=== PATIENT | female | born 2005 | race Caucasian/White ===

== ENCOUNTER 2023-06-02 04:15 | Emergency (ER) | payer BC, SELFPAY ==
[2023-06-02 04:17] VITALS: BP 143/91; PULSE 95; RESP 15; TEMP 36.8; O2SAT 99; BMI 19.7
--- NOTE | 2023-06-02 04:31 | ECG_ITS ---
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 Measurements Intervals [place] Rate: 76 P: 76 ID: 130 QRS: 62 QRSD: 85 T: 24 QT: 368 QTc: 415 Interpretive Statements SINUS RHYTHM WITH SINUS ARRHYTHMIA NONSPECIFIC T-WAVE ABNORMALITY No previous ECG available for comparison Electronically Signed On 06-02-2023 23:54:27 CDT by Mo Dean M.D. [id number]
--- NOTE | 2023-06-02 04:31 | XRR_ITS ---
PROCEDURE INFORMATION: Exam: XR Chest Exam date and time: 06/02/2023 4:35 AM Age: 17 years old Clinical indication: Chest pressure; Patient HX: C/O chest pain with nausea; Additional info: Cp TECHNIQUE: Imaging protocol: Radiologic exam of the chest. Views: 1 view. COMPARISON: No relevant prior studies available. FINDINGS: Lungs: Unremarkable. No consolidation. Pleural spaces: Unremarkable. No pleural effusion. No pneumothorax. Heart/Mediastinum: Unremarkable. No cardiomegaly. Bones/joints: Unremarkable. XR/XR chest 1V portable [id number] IMPRESSION: No acute findings.
[2023-06-02 04:32] VITALS: BP 125/85; PULSE 86; RESP 17; O2SAT 99
[2023-06-02 04:39] LABS: Basophils % 0.3 %; Eosinophils # 0.1 10^3/uL (0.0-0.8); Eosinophils % 1.2 %; Hematocrit 42.9 % (36-47); Lymphocytes % 41.9 %; Mean Corpuscular HGB Conc 34.7 g/dL (30-55); Mean Corpuscular Hemoglobin 30.4 pg (27-33); Mean Corpuscular Volume 87.6 fl (85-98); Mean Platelet Volume 11.5 fL (7.4-10.4); Monocytes # 0.5 10^3/uL (0.2-0.9); Monocytes % 7.3 %; Neutrophils # 3.57 10^3/uL (1.8-8.0); Neutrophils % 49.2 %; Nucleated Red Blood Cells % 0 %; Platelet Count 226 10^3/cmm (157-399); Red Cell Distribution Width 12.1 % (12.1-15.1); White Blood Count 7.26 10^3/uL (4.5-13.0)
[2023-06-02 04:54] LABS: HCG, Serum Qual Negative (Negative)
[2023-06-02 04:55] LABS: D Dimer <= 0.27 ug/mLFEU (0-0.59)
[2023-06-02 04:58] LABS: Troponin(5th) Baseline < 6 ng/L (0-10)
--- NOTE | 2023-06-02 04:59 | ED_ITS ---
HPI - Chest Pain 2 General: Chief Complaint: Chest Pain Stated Complaint: sudden dizziness, sharp pain in chest nausous Time Seen by Provider: 06/02/23 04:23 History of Present Illness: Healthy 17-year-old female. She presents with sudden onset of chest discomfort, sharp in nature, worse with deep breathing. She became nauseated and dizzy with the pain. It is since improved to some degree and now just feels heavy . No significant shortness of breath currently. She denies recent cough or fever. She denies leg swelling or pain. She has been in [place], and on a long car trip back to [facility]. Associated symptoms: Reports dyspnea, nausea and palpitations; Deny abdominal pain, fever(s) or vomiting Review of Systems 2 Const: Denies: fever(s) or chills ENMT: Denies: throat pain Card: Reports: chest pain and palpitations Resp: Reports: dyspnea; Denies: productive cough or non-productive cough GI: Reports: nausea; Denies: abdominal pain or vomiting Skin/Breast: Denies: rash Physical Exam 2 Const: COMMON NORMALS: no acute distress GENERAL APPEARANCE: cooperative; not ill appearing and not frail appearing HENMT: COMMON NORMALS: normocephalic, atraumatic and Normal external nose present HEAD & SCALP: normocephalic and atraumatic FACE & SINUS: normal facial exam and face symmetric NOSE: Normal external nose present Eye: COMMON NORMALS: Equal, round and reactive pupils present and EOMs intact bilaterally PUPIL: Yes Equal, round and reactive pupils present Neck/C-Spine: GENERAL: Yes trachea midline Chest: CHEST: Yes Symmetrical chest wall rise Resp: COMMON NORMALS: normal respiratory effort, No retractions, No use of accessory muscles and clear to auscultation bilaterally AUSCULTATION: clear to auscultation bilaterally Cardio: COMMON NORMALS: regular rate and regular rhythm RATE: regular rate RHYTHM: regular rhythm GI: COMMON NORMALS: Normal to inspection, nondistended, normoactive bowel sounds present Extremity: COMMON NORMALS: no pedal edema Neuro: ROSALIA COMA SCALE: document GCS findings Rosalia coma scale eye opening: Spontaneous [place] coma scale verbal response: Orientated Rosalia coma scale motor response: Obey commands Rosalia coma scale total score: 15 S ENSORY EXAM: Yes extremities (intact) Psych: COMMON NORMALS: speech normal SPEECH: Yes normal speech Skin: COMMON NORMALS: no rashes or lesions noted GENERAL SKIN EXAM: no rashes or lesions noted Course 2 Vital Signs: Vital signs: Vital Signs Temperature 98.3 F 06/02/23 04:17 Pulse Rate 77 06/02/23 06:19 Respiratory Rate 14 06/02/23 06:19 Blood Pressure 133/87 06/02/23 06:19 Pulse Oximetry 98 06/02/23 06:19 Oxygen Delivery Me thod Room Air 06/02/23 04:17 MDM - Chest Pain Medical Decision Making 17-year-old female with resolving chest discomfort. Chest x-ray is negative. Vital signs are stable. She is afebrile. Hemoglobin is 15. White blood cell count is 7.3. Troponin is nondetectable. D-dimer is nondetectable. Lipase is normal. She is not . Awaiting CMP. She will be allowed discharge Lab Data 06/02/23 04:29 06/02/23 04:29 Radiology Impressions Chest X-Ray 06/02/23 04:31 IMPRESSION: No acute findings. Laboratory Results WBC 7.26 10^3/uL (4.5-13.0) 06/02/23 04:29 RBC 4.90 10^6/uL (3.85-5.65) 06/02/23 04:29 Hgb 14.90 g/dL (12.4-14.8) H 06/02/23 04:29 Hct 42.9 % (36-47) 06/02/23 04:29 MCV 87.6 fl (85-98) 06/02/23 04:29 MCH 30.4 pg (27-33) 06/02/23 04:29 MCHC 34.7 g/dL (30-55) 06/02/23 04:29 RDW 12.1 % (12.1-15.1) 06/02/23 04:29 Plt Count 226 10^3/cmm (157-399) 06/02/23 04:29 MPV 11.5 fL (7.4-10.4) H 06/02/23 04:29 Neut % (Auto) 49.2 % 06/02/23 04:29 Lymph % (Auto) 41.9 % 06/02/23 04:29 Antelope % (Auto) 7.3 % 06/02/23 04:29 Eos % (Auto) 1.2 % 06/02/23 04:29 Baso % (Auto) 0.3 % 06/02/23 04:29 Neut # (Auto) 3.57 10^3/uL (1.8-8.0) 06/02/23 04:29 Lymph # (Auto) 3.0 10^3/uL (1.5-6.5) 06/02/23 04:29 Antelope # (Auto) 0.5 10^3/uL (0.2-0.9) 06/02/23 04:29 Eos # (Auto) 0.1 10^3/uL (0.0-0.8) 06/02/23 04:29 Baso # (Auto) 0.0 10^3/uL (0.0-0.1) 06/02/23 04: Nucleated RBC % (auto) 0 % 06/02/23 04: Nucleated RBCs # 0.0 /100WBC 06/02/23 04:29 D-Dimer <= 0.27 ug/mLFEU (0-0.59) 06/02/23 04:29 Sodium 137 mmol/L (136-145) 06/02/23 04:29 Potassium 4.0 mmol/L (3.5-5.1) 06/02/23 04:29 Chloride 104 mmol/L (98-107) 06/02/23 04:29 Carbon Dioxide 20 mmol/L (22-29) L 06/02/23 04:29 Anion Gap 17.0 (5-19) 06/02/23 04:29 BUN 6 mg/dL (6-20) 06/02/23 04:29 Creatinine 0.7 mg/dL (0.5-0.9) 06/02/23 04:29 GFR Calculation 107.8 mL/min (90-130) 06/02/23 04:29 Glucose 99 mg/dL (65-115) 06/02/23 04:29 Calculated Osmolality 282 mOsm/kg (285-295) L 06/02/23 04:29 Calcium 9.2 mg/dL (8.5-10.5) 06/02/23 04:29 Total Bilirubin 0.5 mg/dL (0.15-1.2) 03/24/24 04:29 AST 12 U/L (0-32) 06/02/23 04:29 ALT 10 U/L (0-33) 06/02/23 04:29 Alkaline Phosphatase 81 U/L (35-105) 06/02/23 04:29 Troponin T Baseline < 6 ng/L (0-10) 06/02/23 04:29 NT-Pro-B Natriuret Pep < 36 pg/mL (0-125) 06/02/23 04:29 Total Protein 7.2 g/dL (6.6-8.7) 06/02/23 04:29 Albumin 4.4 g/dL (3.5-5.2) 06/02/23 04:29 Globulin 2.8 g/dL (1.3-4.6) 06/02/23 04:29 Lipase 19 U/L (13-60) 06/02/23 04:29 HCG, Qual Negative (Negative) 06/02/23 04:29 All radiology interpretation(s) finalized by discharge Discharge Plan Discharge Patient Disposition: Home Clinical Impression: Chest pain Condition: Stable Discharge Orders: Discharge ED (Routine); Ordered 06/02/23 Ordered By: Sanya Parra Patient Instructions: Chest Pain (ED), Opioid Safety, Pain Management Activity Restrictions/Additional Instructions: Return for worsening or repeated episodes of chest discomfort, vomiting liquids, fever, increasing shortness of breath, other concerning symptoms. See your doctor next week. Coding Level of Care Code ED Scalp Treatment Specialist for Javi Allen
[2023-06-02 05:05] LABS: Lipase 19 U/L (13-60); NT Pro B Type Natriuretic Pept < 36 pg/mL (0-125)
[2023-06-02 05:10] VITALS: BP 138/82; PULSE 87; RESP 12; O2SAT 99
[2023-06-02 06:14] LABS: Alanine Aminotransferase 10 U/L (0-33); Albumin Level 4.4 g/dL (3.5-5.2); Alkaline Phosphatase 81 U/L (35-105); Aspartate Amino Transferase 12 U/L (0-32); Blood Urea Nitrogen 6 mg/dL (6-20); Calcium 9.2 mg/dL (8.5-10.5); Carbon Dioxide 20 mmol/L (22-29); Chloride 104 mmol/L (98-107); Globulin 2.8 g/dL (1.3-4.6); Glomerular Filtration Rate 107.8 mL/min (90-130); Glucose 99 mg/dL (65-115); Osmolality Calculated 282 mOsm/kg (285-295); Sodium 137 mmol/L (136-145); Total Bilirubin 0.5 mg/dL (0.15-1.2); Total Protein 7.2 g/dL (6.6-8.7)
[2023-06-02 06:19] VITALS: BP 133/87; PULSE 77; RESP 14; O2SAT 98
[2023-06-02] MEDS: ketorolac 30 mg/mL INJ 15 MG IVP (06:21)
== END 2023-06-02 06:29 | disposition home or self-care (01) ==
PROVIDERS: Emergency Provider Emergency Medicine
DX: R07.9 Chest pain, unspecified (principal)
CPT/HCPCS: 71045; 80053; 83690; 83880; 84484; 84703; 85025; 85378; 93005; 96374; 99285; J1885